=== PATIENT | female | born 1975 | race Caucasian/White ===

== ENCOUNTER 2024-02-14 18:42 | Outpatient (CLI) | payer OTHER, SELFPAY ==
[2024-02-14 19:29] LABS: Albumin Level 4.5 g/dl (3.5-5.0); Chloride 101 mmol/L (98-107); Sodium 137 mmol/L (136-145)
[2024-02-14 19:30] LABS: Potassium 4.4 mmoL/L (3.5-5.1)
[2024-02-14 19:32] LABS: Alanine Aminotransferase 22 U/L (12-78); Albumin/Globulin Ratio 1.9 (1.1-1.8); Anion Gap 12.4 mEq/L (5-15); Aspartate Amino Transferase 22 U/L (14-36); Bilirubin,Total 0.5 mg/dl (0.2-1.3); Blood Urea Nitrogen 10 mg/dl (7-17); Carbon Dioxide 28 mmol/L (22.0-30.0); Estimated Glomerular Filt Rate 76 ml/min (>60); GFR (African American) 92 ML/MIN (>60); Globulin 2.4 g/dL (1.3-3.2); Total Protein,Serum 6.9 g/dl (6.3-8.2)
[2024-02-14 19:33] LABS: Alkaline Phosphatase 77 U/L (38-126); Calcium 9.9 mg/dl (8.4-10.2); Chol/HDL Ratio 4.5 (1-3.5); Cholesterol 260 mg/dl (140-200); Glucose 109 mg/dl (74-100); HDL Cholesterol 58 mg/dl (40-60); Triglycerides 156 mg/dl (30-150); VLDL Cholesterol 31 mg/dL (0-40)
[2024-02-14 19:38] LABS: Basophils # 0.1 K/mm3 (0-0.2); Basophils % 0.7 % (0.1-2.0); Eosinophils # 0.1 K/mm3 (0.0-0.4); Eosinophils % 1.3 % (0.1-12.0); Hematocrit 45.5 % (37.0-47.0); Lymphocytes # 1.9 K/mm3 (0.7-4.5); Lymphocytes % 26.2 % (10-50); Mean Corpuscular Hemoglobin 29.4 pg (27.0-31.2); Mean Platelet Volume 8.8 fl (7.4-10.4); Monocytes # 0.4 K/mm3 (0.1-1.0); Monocytes % 5.3 % (1.7-9.3); Neutrophils # 4.8 K/mm3 (1.8-7.8); Neutrophils % 66.5 % (37.0-80.0); Platelet Count 373 K/mm3 (142-424); Red Blood Count 5.12 M/mm3 (4.20-5.40); White Blood Count 7.2 K/mm3 (4.8-10.8)
[2024-02-14 19:44] LABS: Direct LDL Cholesterol 150.97 mg/dL (100-129)
[2024-02-14 20:09] LABS: Hemoglobin A1C 5.7 % (4.0-6.0)
[2024-02-14 21:06] LABS: Vitamin B12 183 pg/mL (239-931)
== END 2024-02-14 23:59 | disposition home or self-care (01) ==
LOC: LAB.DROPOF 18:44
PROVIDERS: PCP Nurse Practitioner; Visit Provider Nurse Practitioner
DX: Z13.220 Encounter for screening for lipoid disorders (principal); R73.03 Prediabetes; E53.8 Deficiency of other specified B group vitamins; E55.9 Vitamin D deficiency, unspecified; R53.83 Other fatigue; Z68.24 Body mass index [BMI] 24.0-24.9, adult
CPT/HCPCS: 80050; 80053; 80061; 82306; 82607; 83036; 84443; 85025